=== PATIENT | female | born 2000 | race Caucasian/White ===

== ENCOUNTER 2024-04-28 13:22 | Inpatient (IN) ==
[2024-04-28] MEDS ORDERED: LACTATED RINGER'S 1,000 ML IV PRN (13:29)
[2024-04-28] MEDS ORDERED: CALCIUM CARBONATE 500 MG CHEWABLE TAB PO PRN (13:29)
[2024-04-28] MEDS ORDERED: ACETAMINOPHEN 325 MG TAB PO PRN ×2 (13:29→14:32)
--- NOTE | 2024-04-28 13:45 | History & Physical Report ---
Date of Service April 28, 2024 Assessment & Plan (1) Term : (2) History of section: History of Present Illness Chief Complaint: Leakage of fluid. Strong contractions every 3 to 4 minutes. Intrauterine 38 weeks 5 days gestation. Primary Care Provider: NO PCP Patient is a 24-year-old 3 para 2 good general health due dates 04/05. Had her care at [facility]. Arrived on the labor floor with no records. On arrival membranes were frankly ruptured. Her obstetrical history is as follows 2018 she had a girl spontaneous vaginal delivery at 40 weeks 7 pounds 6 ounces no problems. Second 2021 she had a girl at 39+ weeks for breech presentation. Presently she presents with active strong contractions and leaking vaginal fluid. She states that her beta strep culture is negative. Allergies Allergy/AdvReac Type Severity Reaction Status Date / Time No Known Allergies Allergy Verified 04/23/24 22:00 Home Medications Medication Instructions Recorded Confirmed Type ferrous sulfate 325 mg (65 mg 325 mg PO DAILY 04/23/24 04/23/24 History iron) tablet (iron) Past Med/Surg History Problem List (Updated 04/28/24 @ 13:45 by Margarito Segovia MD) History of section Term Back pain affecting in third trimester Medical History (Updated 04/28/24 @ 13:45 by Margarito Segovia MD) delivery delivered Breech 08/24/21 [facility] Spontaneous vaginal delivery 11/11/2018 [facility] Social History Smoking Status: Never smoker Hx Alcohol Use: No Hx Substance Use: Yes Last Used Substance: Days (ago) Last Used Substance Other:: pt states in the begining of her Preferred Language: Greek marital status: Single Feels Safe at Home: Yes Physical Exam Physical Exam: Physical exam revealed 24-year-old white female alert oriented x 3 cooperative in acute distress due to strong contractions. Heart had a regular rhythm S1 and S2 are normal. Lungs are clear to auscultation percussion. Trachea was midline. Abdomen revealed a term size fetus. Strong contractions palpable every 2 to 3 minutes. Well-healed Pfannenstiel scar. Pelvic exam revealed a forebag present. Leakage of amniotic fluid. Vertex presentation. Cervix was 9 cm plus. Station is 0.
[2024-04-28 14:14] LABS: Hematocrit (blood only) 30.9 % (37.0-47.0); Hemoglobin 10.3 g/dl (12.0-16.0); Mean Corpuscular Hgb Conc 33.3 g/dL (32.0-36.0); Mean Platelet Volume 11.2 fL (9.4-12.4); Platelet Count 190 K/uL (130-400); RDW Coefficient of Variation 14.1 % (11.5-14.5); RDW Standard Deviation 42.6 fL (36.4-46.3); Red Blood Count 3.68 M/uL (4.20-5.40); White Blood Count 7.51 K/ul (4.8-10.8)
[2024-04-28] MEDS: OXYTOCIN 30 UNITS/NSS 30 UNITS/500 ML BAG IV PRN (14:15)
[2024-04-28] MEDS: LIDOCAINE 1% LOCAL 20 ML VIAL INFIL PRN (14:27)
[2024-04-28] MEDS: METHYLERGONOVINE MALEATE 0.2 MG/ML AMP ONE (14:27)
[2024-04-28] MEDS ORDERED: oxyCODONE/ACETAMINOPHEN 5mg/325mg TAB PO PRN (14:32)
[2024-04-28] MEDS ORDERED: OXYTOCIN 30 UNITS/NSS 30 UNITS/500 ML BAG IV PRN (14:32)
[2024-04-28] MEDS ORDERED: bisacodyL 10 MG SUPP PR PRN (14:32)
[2024-04-28] MEDS ORDERED: ACETAMINOPHEN W/CODEINE #3 1 TAB PO PRN (14:32)
[2024-04-28] MEDS ORDERED: HYDROCORTISONE ACETATE 25 MG SUPP PR PRN (14:32)
--- NOTE | 2024-04-28 14:41 | Delivery Summary ---
Vaginal Delivery Summary Date of Service April 28, 2024 Vaginal Delivery Summary Patient was at mated with an intrauterine 38 weeks 5 days gestation. Patient is a 3 para 2. Her first delivery was a normal spontaneous vaginal delivery. Her second delivery was a due to breech presentation. She has had no care at this institution. She was admitted in active labor with strong contractions every 2 to 3 minutes. Leaking amniotic fluid. Her initial exam on admission was 9+ centimeters vertex presentation at about a 0 station. Membranes were ruptured surgically. Fluid was clear. She pushed out a live in about 5 contractions. She delivered a live female in good condition. Cord was allowed to pulse for 1 minute. Then clamped cut by the father. Cord blood was taken. With IV Pitocin running the placenta was removed intact. A superficial right periurethral laceration was repaired under local anesthesia with a running 3-0 chromic. Following this bimanual exam removed all blood clots. There were no other lacerations. Quantitative blood loss was 605 mL. Patient tolerated the procedure well. Patient was also given a dose of IV Stadol to help with pain control with her repair.
[2024-04-28 15:00] LABS: Amphetamines+Metham, Urine Neg (Neg); Barbiturates, Urine Neg (Neg); Benzodiazepine, Urine Neg (Neg); Cocaine, Urine Neg (Neg); Fentanyl, Urine Neg (Neg); MDMA (Ecstacy), Urine Neg (Neg); Marijuana, Urine Neg (Neg); Methadone, Urine Neg (Neg); Opiate, Urine Neg (Neg); Phencyclidine, Urine Neg (Neg)
[2024-04-28] MEDS: BENZOCAINE 20% SPRY 85 APPLN/85 GM CAN EXT PRN (18:27)
[2024-04-28] MEDS: DIPHTHER/TETAN/PERTUS Vaccine (Tdap, Adol/Adult) 0.5mL IM ONE (20:16)
[2024-04-28] MEDS: IBUPROFEN 600 MG TAB PO PRN (21:38)
[2024-04-28] MEDS: DOCUSATE SODIUM 100 MG CAP PO SCH (21:46)
[2024-04-29 06:12] LABS: Hematocrit (blood only) 32.9 % (37.0-47.0); Hemoglobin 10.8 g/dl (12.0-16.0); Mean Corpuscular Hemoglobin 28.1 pg (25.0-34.0); Mean Corpuscular Hgb Conc 32.8 g/dL (32.0-36.0); Mean Corpuscular Volume 85.5 fL (80.0-100.0); Mean Platelet Volume 10.8 fL (9.4-12.4); Platelet Count 222 K/uL (130-400); RDW Coefficient of Variation 14.1 % (11.5-14.5); RDW Standard Deviation 42.9 fL (36.4-46.3); Red Blood Count 3.85 M/uL (4.20-5.40); White Blood Count 8.59 K/ul (4.8-10.8)
[2024-04-29] MEDS: METHYLERGONOVINE MALEATE 0.2 MG/ML AMP IM ONE (07:23)
[2024-04-29] MEDS: PRENATAL VITAMIN 1 TAB PO SCH (07:34)
--- NOTE | 2024-04-29 11:26 | Obstetrical Progress Note ---
Date of Service April 29, 2024 Assessment & Plan (1) (vaginal after ): Day #1 pt doing well anticipate disch tomorrow Results & Data Vital Signs (Past 12 Hours) Vital Signs Temp Pulse Pulse Resp BP BP Pulse Ox 04/29/24 11:08 36.7 C 85 16 129/75 98 04/29/24 04:40 36.7 C 87 16 98/62 L 98 O2 Del Method 04/29/24 11:08 04/29/24 04:40 Room Air
[2024-04-29 19:39] VITALS: O2SAT 97
[2024-04-29] MEDS: bisacodyL 5 MG TABEC PO SCH (23:38)
[2024-04-30 06:00] LABS: Hematocrit (blood only) 28.4 % (37.0-47.0); Hemoglobin 9.6 g/dl (12.0-16.0)
[2024-04-30 07:44] VITALS: PULSE 85; RESP 16; TEMP 98.8
--- NOTE | 2024-04-30 08:22 | Obstetrical Progress Note ---
Date of Service April 30, 2024 Assessment & Plan (1) (vaginal after ): Pt doing well No complaints d/c home with instructions Results & Data Vital Signs (Past 12 Hours) Vital Signs Temp Pulse Pulse Resp BP Pulse Ox O2 Del Method 04/30/24 07:30 37.1 C 85 16 115/74 97 Room Air 04/29/24 23:52 36.9 C 82 18 113/72 Room Air
[2024-04-30 09:37] VITALS: BP 91/56
== END 2024-04-30 12:20 | disposition home or self-care (01) | DRG 807 ==
LOC: OPB 13:22 → 4S1 13:22 → 4E2 17:24